=== PATIENT | female | born 1960 | race Caucasian/White ===

== ENCOUNTER 2022-02-18 15:13 | Outpatient (CLI) | payer OTHER, SELFPAY ==
--- NOTE | 2022-02-18 15:20 | CRLHL7_ITS ---
For Patients: As a result of the Century Cures Act, medical imaging exams and procedure reports are released immediately into your electronic medical record. You may view this report before your referring provider. If you have questions, please contact your health care provider. BILATERAL SCREENING MAMMOGRAM WITH COMPUTER-AIDED DETECTION AND TOMOSYNTHESIS TECHNIQUE: CC and MLO views were obtained. These mammographic images have been obtained using full-field digital technique. These mammographic images were interpreted with the benefit of computer-aided detection. Breast Tomosynthesis was used in this interpretation. COMPARISON FILM: 12/09/20, 11/20/19, 09/05/18. FINDINGS: The breasts are heterogeneously dense, which may obscure small masses IMPRESSION: There is no radiographic evidence for malignancy. ASSESSMENT: BI-RADS Category 1: Negative RECOMMENDATION: Routine screening mammogram in 1 year. A lay language report of this examination will be provided to the patient. Stewart Beltran M.D. Diagnostic Radiologist [email or web address] CLARI/Dictated by: Stewart Beltran MD @ 02/19/2022 8:28:00 AM (Electronically Signed)
== END 2022-02-18 15:14 | disposition home or self-care (01) ==
LOC: MAMMO 15:13
PROVIDERS: PCP Family Medicine; Visit Provider Family Medicine
DX: Z12.31 Encounter for screening mammogram for malignant neoplasm of breast (principal); R92.2 Inconclusive mammogram
CPT/HCPCS: 77063; 77067

== ENCOUNTER 2022-06-10 09:33 | Outpatient (CLI) | payer OTHER, SELFPAY ==
[2022-06-10 15:17] LABS: Albumin* 5.1 g/dL (3.3-5.0); Chloride* 97 mmol/L (96-114); Potassium* 4.4 mmol/L (3.6-5.1); Sodium* 136 mmol/L (135-149)
[2022-06-10 15:19] LABS: Carbon Dioxide* 31 mmol/L (20-32); Cholesterol* 275 mg/dL (90-199); Creatinine* 0.7 mg/dL (0.5-1.5); Estimated Glomerular Filt Rate 98 ml/min
[2022-06-10 15:20] LABS: Alanine Aminotransferase* 30 U/L (4-35); Alkaline Phosphatase* 119 U/L (40-150); Aspartate Amino Transferase* 44 U/L (12-35); Bilirubin Total* 0.6 mg/dL (0.1-1.5); Blood Urea Nitrogen* 12 mg/dL (7-30); Glucose* 105 mg/dL (60-115); Triglycerides* 68 mg/dL (40-149)
[2022-06-10 15:32] LABS: HDL Cholesterol* 136 mg/dL (>=50); LDL Cholesterol Calculated 125 mg/dL (<100)
[2022-06-11 21:47] LABS: Vitamin D, 1,25-Dihydroxy 73.2 pg/mL (19.9-79.3)
== END 2022-06-10 09:34 | disposition home or self-care (01) ==
PROVIDERS: PCP Family Medicine; Visit Provider Family Medicine
DX: Z00.00 Encounter for general adult medical examination without abnormal findings (principal); E55.9 Vitamin D deficiency, unspecified; E78.00 Pure hypercholesterolemia, unspecified; E83.52 Hypercalcemia; F41.8 Other specified anxiety disorders
CPT/HCPCS: 80053; 80061; 82652

== ENCOUNTER 2023-02-21 15:09 | Outpatient (CLI) | payer OTHER, SELFPAY ==
--- NOTE | 2023-02-21 15:20 | CRLHL7_ITS ---
For Patients: As a result of the Century Cures Act, medical imaging exams and procedure reports are released immediately into your electronic medical record. You may view this report before your referring provider. If you have questions, please contact your health care provider. BILATERAL SCREENING MAMMOGRAM WITH COMPUTER-AIDED DETECTION AND TOMOSYNTHESIS TECHNIQUE: CC and MLO views were obtained. These mammographic images have been obtained using full-field digital technique. These mammographic images were interpreted with the benefit of computer-aided detection. Breast Tomosynthesis was used in this interpretation. COMPARISON FILM: 02/18/22, 11/20/19, 09/05/18. FINDINGS: The breasts are heterogeneously dense, which may obscure small masses IMPRESSION: There is no radiographic evidence for malignancy. ASSESSMENT: BI-RADS Category 2: Benign RECOMMENDATION: Routine screening mammogram in 1 year. A lay language report of this examination will be provided to the patient. Stewart Beltran M.D. Diagnostic Radiologist [email or web address] CLARI/Dictated by: Stewart Beltran MD @ 02/22/2023 8:16:00 AM (Electronically Signed)
== END 2023-02-21 15:10 | disposition home or self-care (01) ==
LOC: MAMMO 15:11
PROVIDERS: PCP Family Medicine; Visit Provider Family Medicine
DX: Z12.31 Encounter for screening mammogram for malignant neoplasm of breast (principal); R92.2 Inconclusive mammogram
CPT/HCPCS: 77063; 77067

== ENCOUNTER 2023-08-01 11:13 | Outpatient (CLI) | payer OTHER, SELFPAY | END 2023-08-01 11:14 | disposition home or self-care (01) | PROVIDERS: PCP Family Medicine; Visit Provider Family Medicine | DX: Z00.00 Encounter for general adult medical examination without abnormal findings (principal); E78.00 Pure hypercholesterolemia, unspecified; E55.9 Vitamin D deficiency, unspecified; E83.52 Hypercalcemia; R03.0 Elevated blood-pressure reading, without diagnosis of hypertension | CPT/HCPCS: 80053; 80061; 84443 ==

== ENCOUNTER 2024-05-28 12:48 | Outpatient (CLI) | payer OTHER, SELFPAY ==
--- NOTE | 2024-05-28 13:00 | CRLHL7_ITS ---
For Patients: As a result of the Century Cures Act, medical imaging exams and procedure reports are released immediately into your electronic medical record. You may view this report before your referring provider. If you have questions, please contact your health care provider. BILATERAL SCREENING MAMMOGRAM WITH COMPUTER-AIDED DETECTION AND TOMOSYNTHESIS TECHNIQUE: CC and MLO views were obtained. These mammographic images have been obtained using full-field digital technique. These mammographic images were interpreted with the benefit of computer-aided detection. Breast Tomosynthesis was used in this interpretation. COMPARISON FILM: 02/21/23, 02/18/22, 12/09/20. FINDINGS: The breasts are heterogeneously dense, which may obscure small masses IMPRESSION: There is no radiographic evidence for malignancy. ASSESSMENT: BI-RADS Category 1: Negative RECOMMENDATION: Routine screening mammogram in 1 year. A lay language report of this examination will be provided to the patient. Stewart Beltran M.D. Diagnostic Radiologist [email or web address] GENARO/rosita / bM/Dictated by: Stewart Beltran MD @ 05/31/2024 8:21:00 AM (Electronically Signed)
== END 2024-05-28 12:49 | disposition home or self-care (01) ==
LOC: MAMMO 12:48
PROVIDERS: PCP Family Medicine; Visit Provider Family Medicine
DX: Z12.31 Encounter for screening mammogram for malignant neoplasm of breast (principal); R92.333 Mammographic heterogeneous density, bilateral breasts
CPT/HCPCS: 77063; 77067

== ENCOUNTER 2024-08-02 11:02 | Outpatient (CLI) | payer OTHER, SELFPAY | END 2024-08-02 11:03 | disposition home or self-care (01) | LOC: LKVREF 11:07 | PROVIDERS: PCP Family Medicine; Visit Provider Family Medicine | DX: E78.00 Pure hypercholesterolemia, unspecified (principal); E55.9 Vitamin D deficiency, unspecified; E83.52 Hypercalcemia | CPT/HCPCS: 80053; 80061 ==

== ENCOUNTER 2024-08-24 16:33 | Outpatient (CLI) | payer OTHER, SELFPAY ==
--- NOTE | 2024-08-24 16:45 | CRLHL7_ITS ---
For Patients: As a result of the 21st Century Cures Act, medical imaging exams and procedure reports are released immediately into your electronic medical record. You may view this report before your referring provider. If you have questions, please contact your health care provider. INDICATION: Questionable pulmonary nodule. TECHNIQUE: CT chest without contrast. COMPARISON: None. FINDINGS: Lungs and pleura: Multiple scattered solid pulmonary nodules of 5 millimeter or less in size as described below. A solid nodule at the right apex measures 5 millimeter (3/8). Nodule of 3 millimeter in the right upper lobe (3/32). A 4 millimeter subpleural right lower lobe nodule (3/45). Nodule of 4 millimeter in the subpleural right lower lobe (3/48). Another solid subpleural nodule 4 millimeter in the right lower lobe (3/55). Largest nodule in the right lower lobe measuring 5 millimeter (3/66). There are few small nodules of 2-3 millimeter along the left oblique fissure, largest measures 2 millimeter as seen on series number 3/46 and 3/52. No pleural effusion or pneumothorax. No ground-glass nodule. The central airways are patent. Heart and vasculature: Heart size is normal. Thoracic aorta and pulmonary artery are normal in caliber. Lymph nodes/mediastinum: No mediastinal, hilar, or axillary adenopathy. Chest wall: No masses. Upper abdomen: Status post cholecystectomy. Bones: Scattered degenerative changes of the spine. No concerning bony lesion. IMPRESSION: scattered solid pulmonary nodules 5 millimeter or less in bilateral lung patel as described. Fleischner SOCIETY GUIDELINES - SOLID NODULES: MULTIPLE LOW RISK - nodule less than 6 mm: No routine follow-up. - nodule 6-8 mm: CT at 3-6 months, then consider CT at 18-24 months. - nodule greater than 8 mm: CT at 3-6 months, then consider CT at 18-24 months. MULTIPLE HIGH RISK - nodule less than 6 mm: Optional CT at 12 months. - nodule 6-8 mm: CT at 3-6 months, then at 18-24 months. - nodule greater than 8 mm: CT at 3-6 months, then at 18-24 months. Please note that all CT scans at this facility use dose modulation, iterative reconstruction, and/or weight-based dosing when appropriate to reduce radiation dose to as low as reasonably achievable. Dictated by Brad Manriquez MD @ 08/27/2024 2:32:20 PM (Electronically Signed)
== END 2024-08-24 16:34 | disposition home or self-care (01) ==
LOC: CT 16:34
PROVIDERS: PCP Family Medicine; Visit Provider Family Medicine
DX: R91.8 Other nonspecific abnormal finding of lung field (principal)
CPT/HCPCS: 71250

== ENCOUNTER 2025-05-31 14:58 | Outpatient (CLI) | payer OTHER, SELFPAY ==
--- NOTE | 2025-05-31 15:00 | CRLHL7_ITS ---
For Patients: As a result of the Century Cures Act, medical imaging exams and procedure reports are released immediately into your electronic medical record. You may view this report before your referring provider. If you have questions, please contact your health care provider. INDICATION: BILATERAL SCREENING MAMMOGRAM, ASYMPTOMATIC 65 Y/O FEMALE COMPARISON: 05/28/2024, 02/21/2023, 02/18/2022 TECHNIQUE: Digital mammogram in CC and MLO projections including computer-aided detection (CAD) and tomosynthesis. BREAST COMPOSITION: The breasts are heterogeneously dense, which may obscure small masses. FINDINGS: No suspicious findings. ASSESSMENT: BI-RADS 1 Negative RECOMMENDATION: Annual screening mammogram. A lay language report of this examination will be provided to the patient. Dictated by: Brenda Mckeon MD @ 05/31/2025 15:30:11 (Electronically Signed)
== END 2025-05-31 14:59 | disposition home or self-care (01) ==
LOC: MAMMO 14:58
PROVIDERS: PCP Family Medicine; Visit Provider Family Medicine
DX: Z12.31 Encounter for screening mammogram for malignant neoplasm of breast (principal); R92.333 Mammographic heterogeneous density, bilateral breasts
CPT/HCPCS: 77063; 77067